=== PATIENT | female | born 1965 | race Caucasian/White ===

== ENCOUNTER → 2023-01-24 | Outpatient (CLI) | payer BC ==
--- NOTE | 2023-01-24 08:58 | MM ---
Reason for Exam: Screening (asymptomatic). Last mammogram was performed 1 year(s) and 6 month(s) ago. Patient History: Menarche at age 14. First Full-Term at age 22. Postmenopausal. Patient has history of breast feeding. Hormonal Contraceptives, from age 48 until age 51. 06/25/2006, MG stereo VAD BX LT - 2 on the Left side. Maternal grandmother had breast cancer. Risk Values: Ave 5 year model risk: 1.3%. NCI Lifetime model risk: 7.2%. Tissue Density: The breast tissue is heterogeneously dense. This may lower the sensitivity of mammography. Findings: Analyzed By CAD. There is no suspicious group of microcalcifications or new suspicious mass in either breast. Stable benign appearing calcifications within both breasts. Overall Assessment: Benign, BI-RAD 2 Management: Screening Mammogram of both breasts in 1 year. A clinical breast exam by your physician is recommended on an annual basis and results should be correlated with mammographic findings. Note on Ave scores and lifetime risk: 1. A Ave score greater than 3% is considered moderate risk. If this is the case, consider specialist referral to assess eligibility for a risk reducing agent. If overall lifetime risk for the development of breast cancer is 20% or higher, the patient may qualify for future screening with alternating mammogram and breast MRI. Electronically signed and approved by: Joce Leong D.O.
== END | disposition home or self-care (01) ==
LOC: RADMAMWWP 07:00
PROVIDERS: ATTEND Obstetrics & Gynecology
DX: Z12.31 Encounter for screening mammogram for malignant neoplasm of breast (principal); Z78.0 Asymptomatic menopausal state; Z80.3 Family history of malignant neoplasm of breast
CPT/HCPCS: 77063; 77067

== ENCOUNTER 2024-12-07 00:41 | Emergency (ER) | payer OTHER, BC ==
[2024-12-07 00:47] VITALS: RESP 18; TEMP 97.8
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
[2024-12-07] MEDS: ACETAMINOPHEN TAB 325 MG TAB PO STA (01:29)
[2024-12-07 03:59] VITALS: BP 132/97; PULSE 51
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
== END 2024-12-07 03:58 | disposition home or self-care (01) ==
LOC: EC 00:41
DX: S16.1XXA Strain of muscle, fascia and tendon at neck level, initial encounter (principal); V49.40XA Driver injured in collision with unspecified motor vehicles in traffic accident, initial encounter
CPT/HCPCS: 72050; 99283

== ENCOUNTER → 2024-12-10 | Outpatient (CLI) | payer BC ==
--- NOTE | 2024-12-10 09:20 | MM ---
Reason for Exam: Screening (asymptomatic). Last mammogram was performed 1 year(s) and 10 month(s) ago. Patient History: Menarche at age 14. First Full-Term at age 22. Postmenopausal. Patient has history of breast feeding. Hormonal Contraceptives, from age 48 until age 51. 06/25/2006, MG stereo VAD BX LT - 2 on the Left side. Maternal grandmother had breast cancer. Risk Values: Ave 5 year model risk: 1.4%. NCI Lifetime model risk: 6.9%. Prior Study Comparison: 02/18/2020 Bilateral MG 3D screening mammo w/cad, Unknown. 08/12/2021 Bilateral MG 3D screening mammo w/cad, Unknown. 01/24/2023 Bilateral MG 3D screening mammo w/cad, [facility]. Tissue Density: The breasts are heterogeneously dense, which may obscure small masses. Findings: Analyzed By CAD. Scattered bilateral round and punctate calcifications are redemonstrated. More regional calcifications posterior upper outer quadrant right breast are again noted. Benign bilateral vascular calcifications. Areas of bilaterally symmetric density remain unchanged. There is no suspicious group of microcalcifications or new suspicious mass in either breast. Overall Assessment: Benign, BI-RAD 2 Management: Screening Mammogram of both breasts in 1 year. Patient should continue monthly self-breast exams. A clinical breast exam by your physician is recommended on an annual basis. This exam should not preclude additional follow-up of suspicious palpable abnormalities. Note on Ave scores and lifetime risk: 1. A Ave score greater than 3% is considered moderate risk. If this is the case, consider specialist referral to assess eligibility for a risk reducing agent. 2. If overall lifetime risk for the development of breast cancer is 20% or higher, the patient may qualify for future screening with alternating mammogram and breast MRI. [facility], , 12/10/2024 9:17 AM. Electronically signed and approved by: Robin Gustafson M.D. Radiologist
== END | disposition home or self-care (01) ==
LOC: RADMAMWWP 08:34
PROVIDERS: ATTEND Obstetrics & Gynecology
DX: Z12.31 Encounter for screening mammogram for malignant neoplasm of breast (principal); R92.333 Mammographic heterogeneous density, bilateral breasts; Z80.3 Family history of malignant neoplasm of breast; Z78.0 Asymptomatic menopausal state; Z92.0 Personal history of contraception
CPT/HCPCS: 77063; 77067